=== PATIENT | female | born 1975 | race African-American/Black ===

== ENCOUNTER 2020-12-22 18:18 | Emergency (ER) | payer MEDICAID ==
[~2020-12-22] VITALS: Ht 167.6 cm; Wt 104.3 kg
[~2020-12-22 18:18] MED LIST: BACTRIM DS TAB1 EAC1 ORAL; CEPHALEXIN500 MG ORAL; CIPRO500 MG PO; COLACE100 MG ORAL; CORTIFOAM15 GM RC; DIBUCAINE28 GM RC; IBUPROFEN600 MG ORAL; NITROFURANTOIN100 M2 ORAL; NKM; NORCO 5-325 TA1 EACH ORAL; TYLENOL 8 HOUR650 M1 ORAL; UNOBMED
--- NOTE | 2020-12-22 19:02 | NUR ---
Pt states she has palpitations x5 days and has been drinking soda. Pt reports "I never drink water." But she has been craving more water in these past x5 days. Pt also reports R sided hip pain and decreased vision. Pt has L neck abscess x6 years and has not followed up with the abscess with MD.
--- NOTE | 2020-12-22 19:14 | Emergency Room Report ---
History of Present Illness General Chief Complaint: Palpitations Source: Patient Present Illness HPI Patient is a 45-year-old female who presents to the ER with multiple complaints. Patient complains of 4 days of increased thirst and increased urination. She complains of diffuse abdominal pain. She denies any nausea or vomiting. She denies any constipation or diarrhea. She denies any fever or chills. Patient also complains of palpitations when exerting herself. She denies any cough. Patient also complains of swelling to the left side of her neck. She states that she has had a mass there for a very long time does not know what it is called but states that recently has become more swollen and has been causing her to have a left-sided headache. She denies any difficulty swallowing, drooling, neck stiffness. Allergies: Coded Allergies: No Known Allergies (Unverified , 07/29/13) COVID-19 Screening Contact w/high risk pt: No Experienced COVID-19 symptoms?: No COVID-19 Testing performed FACILITIES COORDINATOR: No Patient History Social History: Reports: smoking Last Menstrual Period: 12/15/20 Now: No Reviewed Nursing Documentation: PMH: Agreed; PSxH: Agreed Nursing Documentation-PMH Hx Cardiac Problems: No Hx Hypertension: Yes Hx Cancer: Yes Hx Gastrointestinal Problems: Yes - Abdominal Pain Hx Neurological Problems: No Review of Systems All Other Systems: negative except mentioned in HPI Physical Exam Vital Signs Date Time Temp Pulse Resp B/P (MAP) Pulse Ox O2 Delivery O2 Flow Rate FiO2 12/22/20 18:47 98.6 88 20 155/94 (114) 96 Room Air Sp02 EP Interpretation: reviewed, normal General Appearance: no apparent distress, alert, GCS 15, non-toxic Head: normocephalic, atraumatic Eyes: bilateral eye normal inspection, bilateral eye PERRL ENT: no angioedema, moist mucus membranes, other - Large left lateral neck mass upper portion of it appears to be erythematous Neck: full range of motion, no meningismus Respiratory: lungs clear, normal breath sounds, no respiratory distress, no accessory muscle use Cardiovascular #1: regular rate, rhythm Gastrointestinal: other - Obese abdomen mild diffuse abdominal tenderness no guarding no rebound Rectal: deferred Genitourinary: no CVA tenderness Musculoskeletal: normal range of motion, no calf tenderness Neurologic: manager intermediate III-XII nml as tested, oriented x3 Psychiatric: no suicidal/homicidal ideation Skin: no rash Medical Decision Making Diagnostic Impression: Primary Impression: Morbid obesity Additional Impressions: New onset type 2 diabetes mellitus Lesion of neck Cellulitis Methamphetamine abuse ER Course Patient presents with multiple complaints. Patient appears to have new onset diabetes. She came in with increased thirst and frequent urination. Patient's glucose almost 800 with pseudohyponatremia. Patient given IV fluids as well as IV insulin. Repeat blood glucose 500. We will continue to hydrate. Patient CT abdomen pelvis demonstrates epigastric fat stranding between the head of the pancreas and proximal duodenum differentials include pancreatitis as well as duodenitis. Patient does have elevated white blood cell count. Patient has normal lipase. Patient's UDS positive for methamphetamines. Patient CT neck demonstrates a 10.4 cm cystic lesion of the left parotid gland there also is adriel lulitis and warmth to the lesion. Patient started on IV clindamycin. Patient will be transferred for further treatment and evaluation. Laboratory Tests Test 12/22/20 19:30 12/22/20 19:52 12/22/20 21:16 White Blood Count 14.5 K/UL (4.8-10.8) H Red Blood Count 4.94 M/UL (4.20-5.40) Hemoglobin 12.8 G/DL (12.0-16.0) Hematocrit 41.6 % (37.0-47.0) Mean Corpuscular Volume 84 FL (80-99) Mean Corpuscular Hemoglobin 25.9 PG (27.0-31.0) L Mean Corpuscular Hemoglobin Concent 30.7 G/DL (32.0-36.0) L Red Cell Distribution Width 14.3 % (11.6-14.8) Platelet Count 306 K/UL (150-450) Mean Platelet Volume 8.2 FL (6.5-10.1) Neutrophils (%) (Auto) 72.3 % (45.0-75.0) Lymphocytes (%) (Auto) 21.8 % (20.0-45.0) Monocytes (%) (Auto) 3.9 % (1.0-10.0) Eosinophils (%) (Auto) 1.1 % (0.0-3.0) Basophils (%) (Auto) 0.9 % (0.0-2.0) Urine Color Pale yellow Urine Appearance Clear Urine pH 5 (4.5-8.0) Urine Specific [place] 1.010 (1.005-1.035) Urine Protein 2+ (NEGATIVE) H Urine Glucose (UA) 4+ (NEGATIVE) H Urine Ketones 1+ (NEGATIVE) H Urine Blood 1+ (NEGATIVE) H Urine Nitrite Negative (NEGATIVE) Urine Bilirubin Negative (NEGATIVE) Urine Urobilinogen Normal MG/DL (0.0-1.0) Urine Leukocyte Esterase Negative (NEGATIVE) Urine RBC 0-2 /HPF (0 - 2) Urine WBC 0-2 /HPF (0 - 2) Urine Squamous Epithelial Cells Few /LPF (NONE/OCC) Urine Bacteria Few /HPF (NONE) Sodium Level 126 MMOL/L (136-145) L Potassium Level 4.3 MMOL/L (3.5-5.1) Chloride Level 92 MMOL/L (98-107) L Carbon Dioxide Level 25 MMOL/L (21-32) Anion Gap 9 mmol/L (5-15) Blood Urea Nitrogen 18 mg/dL (7-18) Creatinine 1.4 MG/DL (0.55-1.30) H Estimated Glomerular Filtration Rate 49.7 mL/min (>60) Glucose Level 784 MG/DL (74-106) *H Lactic Acid Level 2.10 mmol/L (0.4-2.0) H Calcium Level 9.4 MG/DL (8.5-10.1) Magnesium Level 2.0 MG/DL (1.8-2.4) Total Bilirubin 0.4 MG/DL (0.2-1.0) Aspartate Amino Transferase (AST) 14 U/L (15-37) L Alanine Aminotransferase (ALT) 23 U/L (12-78) Alkaline Phosphatase 175 U/L (46-116) H Troponin I 0.015 ng/mL (0.000-0.056) Total Protein 8.2 G/DL (6.4-8.2) Albumin 3.0 G/DL (3.4-5.0) L Globulin 5.2 g/dL Albumin/Globulin Ratio 0.6 (1.0-2.7) L Lipase 218 U/L (73-393) Thyroid Stimulating Hormone (TSH) 0.808 uiU/mL (0.358-3.740) Free Thyroxine 1.14 NG/DL (0.76-1.46) Human Chorionic Gonadotropin, Quant 1 mIU/mL (1-6) Urine Opiates Screen Negative (NEGATIVE) Urine Barbiturates Screen Negative (NEGATIVE) Phencyclidine (PCP) Screen Negative (NEGATIVE) Urine Amphetamines Screen Positive (NEGATIVE) H Urine Benzodiazepines Screen Negative (NEGATIVE) Urine Cocaine Screen Negative (NEGATIVE) Urine Marijuana (THC) Screen Negative (NEGATIVE) Acetone Level Negative (NEGATIVE) Prothrombin Time 11.6 SEC (9.30-11.50) H Prothrombin Time INR 1.1 (0.9-1.1) Activated Partial Thromboplast Time 21 SEC (23-33) L D-Dimer < 0.19 mg/L FEU POC Whole Blood Glucose Pending EKG Diagnostic Results Troponin ordered: Yes When was troponin ordered?: Dec 22, 2020 EKG Time: 18:18 EP Interpretation: Ange Bright MD Rate: normal - 90 bpm Rhythm: NSR ST Segments: no acute changes Other Impression Prolonged QT ASA given to the pt in ED: No Rhythm Strip Diag. Results Rhythm Strip Time: 19:26 EP Interpretation: yes - Ange Bright MD Rate: 85 bpm Rhythm: NSR, no PVC's, no ectopy Chest X-Ray Diagnostic Results Chest X-Ray Diagnostic Results : Chest X-Ray Ordered: Yes # of Views/Limited/Complete: 1 View Indication: Other - Palpitations EP Interpretation: Yes Interpretation: no consolidation, no effusion, no pneumothorax, no acute cardiopulmonary disease Impression: No acute disease Last Vital Signs Date Time Temp Pulse Resp B/P (MAP) Pulse Ox O2 Delivery O2 Flow Rate FiO2 12/22/20 18:47 98.6 88 20 155/94 (114) 96 Room Air Disposition: ADMITTED INPATIENT Condition: Critical Additional Instructions: Please note that this report is being documented using [employer] technology. This can lead to erroneous entry secondary to incorrect interpretation by the dictating instrument. Ange Bright M.D. Dec 22, 2020 19:14
[2020-12-22] MEDS ORDERED: Insulin Human Regular 100units/ml 3ml IV ONE ×2 (19:45→22:45)
[2020-12-22 19:55] VITALS: BP 150/88
[2020-12-22 19:58] LABS: APPEARANCE,URINE CLEAR; BILIRUBIN, URINE NEGATIVE (NEGATIVE); COLOR,URINE PALE YELLOW; GLUCOSE, URINE (UA) 4+ (NEGATIVE); KETONES,URINE 1+ (NEGATIVE); LEUKOCYTE ESTERASE ,URINE NEGATIVE (NEGATIVE); NITRITE,URINE NEGATIVE (NEGATIVE); PH,URINE 5 (4.5-8.0); PROTEIN,URINE 2+ (NEGATIVE); UROBILINOGEN,URINE NORMAL MG/DL (0.0-1.0)
[2020-12-22 20:02] LABS: ALBUMIN/GLOBULIN RATIO 0.6 (1.0-2.7); BILIRUBIN,TOTAL 0.4 MG/DL (0.2-1.0); CALCIUM 9.4 MG/DL (8.5-10.1); CREATININE 1.4 MG/DL (0.55-1.30); POTASSIUM 4.3 MMOL/L (3.5-5.1)
[2020-12-22 20:07] LABS: BASOPHILS % (AUTO) 0.9 % (0.0-2.0); EOSINOPHILS % (AUTO) 1.1 % (0.0-3.0); HEMATOCRIT 41.6 % (37.0-47.0); HEMOGLOBIN 12.8 G/DL (12.0-16.0); LYMPHOCYTES % (AUTO) 21.8 % (20.0-45.0); MEAN CORPUSCULAR VOLUME 84 FL (80-99); MONOCYTES % (AUTO) 3.9 % (1.0-10.0); NEUTROPHILS % (AUTO) 72.3 % (45.0-75.0); PLATELET COUNT 306 K/UL (150-450); RED BLOOD COUNT 4.94 M/UL (4.20-5.40); RED CELL DISTRIBUTION WIDTH 14.3 % (11.6-14.8); WHITE BLOOD COUNT 14.5 K/UL (4.8-10.8)
--- NOTE | 2020-12-22 20:10 | NUR ---
Lab reports BG [id number] for patient. ED , Tai and TINO Costello aware.
--- NOTE | 2020-12-22 20:11 | NUR ---
EDP aware of blood sugar level. Will continue to monitor.
[2020-12-22 20:24] LABS: INR 1.1 (0.9-1.1)
[2020-12-22] MEDS ORDERED: Omnipaque 350 100ml vial INJ PRN (20:30)
[2020-12-22 21:00] VITALS: BP 140/87
--- NOTE | 2020-12-22 22:00 | Diagnostic Imaging Report ---
EXAM: CT Neck With Intravenous Contrast CLINICAL HISTORY: ABD PAIN TECHNIQUE: Axial computed tomography images of the neck with intravenous contrast. CTDI is 139 mGy and DLP is 409.9 mGy-cm. One or more of the following dose reduction techniques were used: automated exposure control, adjustment of the mA and/or kV according to patient size, use of iterative reconstruction technique. COMPARISON: No relevant prior studies available. FINDINGS: Oropharynx: Unremarkable. No significant tonsillar enlargement. No peritonsillar abscess. Hypopharynx: Unremarkable. Larynx: Unremarkable. Normal epiglottis. Trachea: Unremarkable. Retropharyngeal space: Unremarkable. Submandibular/parotid glands: Large cystic lesion in the parotid region measuring approximately 7.7 x 6.4 x 10.4 cm. There is a claw sign along the medial aspect suggesting parotid origin. There is uniform low level internal density. Thyroid: Unremarkable. No enlarged or calcified nodules. Bones/joints: Multilevel degenerative changes of the cervical spine with prominent anterior osteophytes at C5-C6 and C6-C7. No acute fracture. Soft tissues: Unremarkable. Vasculature: No acute findings. Lymph nodes: Unremarkable. No lymphadenopathy. Lung apices: Unremarkable as visualized. IMPRESSION: 10.4 cm cystic lesion of the left parotid gland. Differential includes lymphangioma, lymphoepithelial cysts, and first branchial cleft cyst. MRI can be considered as clinically indicated for further evaluation of internal solid components and cyst characterization.
--- NOTE | 2020-12-22 22:08 | Diagnostic Imaging Report ---
EXAM: CT Abdomen and Pelvis Without Intravenous Contrast CLINICAL HISTORY: ABD PAIN TECHNIQUE: Axial computed tomography images of the abdomen and pelvis without intravenous contrast. CTDI is 21.1 mGy and DLP is 1058.5 mGy-cm. One or more of the following dose reduction techniques were used: automated exposure control, adjustment of the mA and/or kV according to patient size, use of iterative reconstruction technique. COMPARISON: CT abdomen and pelvis dated 11/23/2013. FINDINGS: Lung bases: Unremarkable. No mass. No consolidation. ABDOMEN: Liver: Unremarkable. Gallbladder and bile ducts: Subtle layering density within the dependent portion of the gallbladder fundus. No ductal dilation. Pancreas: Unremarkable. No ductal dilation. Spleen: Unremarkable. No splenomegaly. Adrenals: Unremarkable. No mass. Kidneys and ureters: Unremarkable. No obstructing stones. No hydronephrosis. Stomach and bowel: A few colonic diverticula. No evidence of diverticulitis. No obstruction. PELVIS: Appendix: Normal appendix. Bladder: Unremarkable. No stones. Reproductive: Unremarkable as visualized. ABDOMEN and PELVIS: Intraperitoneal space: Unremarkable. No free air. No significant fluid collection. Bones/joints: Degenerative changes of the visualized spine, most prominent at L4-L5 and L5-S1 with a small circumferential disc bulges. No evidence of severe canal narrowing. No acute fracture. No dislocation. Soft tissues: At the superiormost aspect of the scan, there is a 3.5 x 3.1 cm solid round mass of the anterior subcutaneous soft tissues. Vasculature: If you atherosclerotic vascular calcifications. No abdominal aortic aneurysm. Lymph nodes: Subtle epigastric fat stranding, between the proximal duodenum and pancreatic head. A few adjacent periaortic lymph nodes. IMPRESSION: 1. Subtle epigastric fat stranding between the head of the pancreas and proximal duodenum with adjacent periaortic lymph nodes. Differential includes pancreatitis as well as duodenitis. Recommend correlation with clinical exam. 2. Diverticulosis without diverticulitis. 3. Subtle layering density within the gallbladder may represent stones versus sludge. 4. Nonaggressive appearing, well marginated ovoid soft tissue mass in the anterior subcutaneous soft tissues at the very most proximal image of the exam. This may represent a large epidermal cyst, desmoid tumor, among others. Recommend correlation with clinical exam and history and consider nonemergent ultrasound for further evaluation as clinically indicated.
[2020-12-22] MEDS ORDERED: Clindamycin 900mg 50 ML IV ONE (22:15)
[2020-12-22 23:03] VITALS: BP 139/67
--- NOTE | 2020-12-22 23:50 | NUR ---
New blood sugar taken 375 . Will continue to monitor.
--- NOTE | 2020-12-23 00:08 | NUR ---
Patient in bed alert and stable. Respiration even and unlabored. Vitals signs taken and normal. No pain or discomfort verbalized. Safety, Fall and comfort measures in place. Will continue monitoring the patient during the sift.
--- NOTE | 2020-12-23 01:17 | NUR ---
Pte was transfer to [facility] report given to Per JIMÉNEZ , pte was order picker/assembler by [facility] ambulance staff . All belongings were attached sent with the patient . Patient left the ER stable. Will continue to monitor.
[2020-12-23 01:19] VITALS: BP 130/89
--- NOTE | 2020-12-23 12:01 | Cardiology Report ---
APPROVED REPORT EKG Measurement Heart [id number] <Conclusion> Normal sinus rhythm Prolonged QT Abnormal ECG
--- NOTE | 2020-12-23 16:13 | Diagnostic Imaging Report ---
Procedure: XRAY Chest 1v Reason for study: Chest pain. Comparison films: 08/12/2013. FINDINGS: A single one view chest is obtained. Vascularity is normal. The lung white are clear bilaterally. Cardiac and mediastinal silhouette are within normal limits. CP angles are sharp. The bony thorax appear unremarkable. IMPRESSION: NO ACUTE CARDIOPULMONARY DISEASE.
== END 2020-12-23 01:23 | disposition short-term general hospital (02) ==
LOC: EMR 20:28
DX: E11.9 Type 2 diabetes mellitus without complications (principal); E66.01 Morbid (severe) obesity due to excess calories; R22.1 Localized swelling, mass and lump, neck; F15.10 Other stimulant abuse, uncomplicated; L03.221 Cellulitis of neck; I10 Essential (primary) hypertension; F17.200 Nicotine dependence, unspecified, uncomplicated; Z68.37 Body mass index [BMI] 37.0-37.9, adult
CPT/HCPCS: 36415; 70491; 71045; 74176; 80053; 80307; 81003; 82009; 82962; 83605; 83690; 83735; 84439; 84443; 84484; 84702; 85025; 85379; 85610; 85730; 93005; 96361; 96365; 96375; 96376; J1815; J7030; Q9967; S0077; Z7502; 99285